=== PATIENT | female | born 1955 | race Caucasian/White ===

== ENCOUNTER 2023-12-12 06:27 | Inpatient (IN) | payer OTHER, SELFPAY ==
--- NOTE | 2023-11-07 10:49 | CM ---
Patient is scheduled for an elective R TKR on 12/12/23. Spoke with patient prior to surgery via telephone. Patient had a L TKR at in 2020. Reintroduced role of Orthopedic Navigator. Patient reports that she lives with her in a one story
home. There is one step to enter. She currently functions independently. She has a rolling walker, toilet rails, shower seat and cane. She has never had VN services. PCP is Yasmany Charles.
Discussed orthopedic program and post surgical plans. Reviewed anticipated length of stay and that goal is for her to return home at discharge. Also reviewed outpatient PT. Patient is in agreement with tentative plan and will go directly to
outpatient PT at [facility]. She will have support from her when she goes home.
Patient will complete online education.
Plan: Orthopedic Navigator will remain available to assist with the care of patient and will reassess discharge needs after surgery.
[2023-11-22 09:03] VITALS: BMI 40.7
[2023-11-22 10:26] LABS: Hematocrit 41.2 % (37.0-47.0); Hemoglobin 13.5 g/dL (12.0-16.0); Mean Corp Hgb Conc. 32.8 g/dL (33.0-37.0); Mean Corpuscular Hgb 31.7 pg (27.0-31.0); Mean Corpuscular Volume 96.7 fL (81.0-99.0); Mean Platelet Volume 9.3 fL (7.4-10.4); Platelet Count 302 10^3/uL (130-400); Red Blood Cell Count 4.26 10^6/uL (4.20-5.40); Red Cell Dist. Width 13.5 % (11.5-14.5); White Blood Cell Count 7.8 10^3/uL (4.8-10.8)
[2023-11-22 10:58] LABS: ALT (SGPT) 21 U/L (0-35); AST (SGOT) 26 U/L (14-36); Albumin 4.5 g/dl (3.5-5.0); Alkaline Phosphatase 87 U/L (38-126); Blood Urea Nitrogen 18 mg/dl (7-17); Calcium 9.2 mg/dl (8.4-10.2); Carbon Dioxide 28 mmol/L (22-30); Chloride 100 mmol/L (98-107); Estimated Creatinine Clearance 118 ml/min; Glucose 103 mg/dl (70-99); Potassium 4.1 mmol/L (3.5-5.1); Sodium 138 mmol/L (135-145); Total Bilirubin 0.7 mg/dl (0.2-1.3); eGFR > 60.00
[2023-11-22 13:08] LABS: Glycohemoglobin (HgbA1c) 5.1 % (4.0-5.6)
[2023-11-22 16:20] VITALS: BMI 40.7
[2023-12-12] VITALS (20 sets, daily range): BP systolic 101–157; BP diastolic 58–91; PULSE 74; O2SAT 95; BMI 40.7
[2023-12-12] MEDS: CELEBREX 200 MG PO (07:26)
[2023-12-12] MEDS: TYLENOL 650 MG PO ×3 (07:26→20:27)
[2023-12-12] MEDS: NORMOSOL-R 1000 IV ×3 (07:27→13:06)
[2023-12-12] MEDS: DILAUDID 2 MG PO ×2 (14:19→16:09)
--- NOTE | 2023-12-12 14:39 | PTCARENOTE ---
1430: Patient arrived to 2S. Full head to toe assessment completed. Neurovascular assessment completed on B/L LE. Decreased movement and sensation note on LE. Aquacell on R knee. Scant amount of blood noted on aquacell. Aquacell intact. 2L NC with
SpO2 greater than 92%. IV fluids running per order. Call vang within reach and bed in lowest position.
[2023-12-12] MEDS: PROTONIX 40 MG PO (16:08)
[2023-12-12] MEDS: NEURONTIN 300 MG PO ×2 (16:09→21:54)
[2023-12-12] MEDS: ANCEF 5 IV (17:07)
[2023-12-12] MEDS: CRESTOR 5 MG PO (17:07)
[2023-12-12] MEDS: ASPIRIN 325 MG PO (17:07)
[2023-12-12] MEDS: FLOVENT 220MCG 1 PUFF INH (19:21)
[2023-12-12] MEDS: COLACE 100 MG PO (20:27)
[2023-12-12] MEDS: TORADOL 15 MG IV (20:27)
[2023-12-12] MEDS: SENOKOT 17.1999999999999993 MG PO (20:27)
[2023-12-12] MEDS: AZULFIDINE 1500 MG PO (20:27)
--- NOTE | 2023-12-12 21:30 | PTCARENOTE ---
patient OOB to chair with assist x1 with rolling walker, tolerated well. Pulse ox on room air 93%
[2023-12-12] MEDS: VALIUM 4 MG PO (21:54)
[2023-12-12] MEDS: BACTROBAN 2% OINTMENT 1 APPLIC NASAL (21:54)
[2023-12-13] MEDS: TYLENOL 650 MG PO ×4 (00:40→12:09)
[2023-12-13] MEDS: DILAUDID 2 MG PO (00:45)
[2023-12-13] MEDS: ANCEF 5 IV (02:09)
[2023-12-13] MEDS: DILAUDID 0.5 MG IV (03:17)
[2023-12-13 03:40] VITALS: BP 124/69
[2023-12-13] MEDS: FLOVENT 220MCG 1 PUFF INH (07:32)
[2023-12-13] MEDS: STRIVERDI RESPIMAT 2 PUFF INH (07:32)
[2023-12-13 07:35] VITALS: BP 128/67
[2023-12-13] MEDS: DILAUDID 4 MG PO (08:04)
[2023-12-13] MEDS: SYNTHROID 25 MCG PO (08:05)
[2023-12-13] MEDS: SENOKOT PO ×2 (08:05→08:19)
[2023-12-13] MEDS: BACTROBAN 2% OINTMENT 1 APPLIC NASAL (08:05)
[2023-12-13] MEDS: COLACE PO ×2 (08:06→08:22)
[2023-12-13] MEDS: ASPIRIN 325 MG PO (08:07)
[2023-12-13] MEDS: TORADOL 15 MG IV (08:07)
[2023-12-13] MEDS: MOBIC 15 MG PO (08:07)
[2023-12-13] MEDS: NEURONTIN 300 MG PO (08:07)
[2023-12-13] MEDS: PROTONIX 40 MG PO (08:07)
[2023-12-13] MEDS: AZULFIDINE 1500 MG PO (08:07)
[2023-12-13] MEDS: FLUSH (NSS) 2 FLUSH IV (08:13)
--- NOTE | 2023-12-13 08:43 | CM ---
Addendum entered by Mary Proctor 12/13/23 11:35:
Patient did well in therapy. She has no concerns about going home and has updated her .
Original Note:
Reviewed chart and held rounds with PT, OT and nursing. Patient admitted as planned for elective R TKR. Met with patient at bedside. Confirmed information previously obtained for assessment. Also discussed discharge plans. The plan is for patient to
return home at discharge. She will have support from her when she goes home. Patient will go directly to outpatient PT and will go to [facility]. She has an appointment scheduled for Tuesday, 12/13.
Patient has a rolling walker, toilet rails, shower seat and cane.
She will use [facility] for discharge prescriptions.
[2023-12-13 09:28] VITALS: BP 114/66; BP 122/59; PULSE 80; O2SAT 93
--- NOTE | 2023-12-13 09:32 | W.PN.ORTHO ---
Today's Communication / Plan
-
d/c
Assessment
.
Distal Motor Intact: Yes
Dressing:
Clean, dry and intact.
Plan
.
Surgery / Date: Myrtle Harper 12/12/23
DVT Prophylaxis: Aspirin
Activity:
Out of bed.
PT/OT
Discharge Plan: Home w/ Outpatient PT
Subjective
.
.:
Patient resting comfortably.
Vital Signs and Labs
.
Vital Signs and Labs:
Lab Results
11/22/23 08:53
11/22/23 08:53
Temp Pulse Resp BP Pulse Ox
97.6 F 72 16 128/67 94
12/13/23 07:35 12/13/23 07:38 12/13/23 07:38 12/13/23 07:35 12/13/23 07:38
Non-invasive Hgb result: 12.1
Physical Exam
-
HEENT: No pallor, cyanosis, or jaundice. Throat clear.
NECK: Supple. No JVD.
RESPIRATORY: Lungs clear to auscultation.
CVS: S1, S2 normal. RRR.� No murmur, rub or gallop.
ABDOMEN: Soft, non-tender. No distension. BS+/normal.
EXTREMITIES: strength equal, no calf pain with palpation
TICKET MARKER: AOx3. No focal deficits. french lecturer grossly intact
--- NOTE | 2023-12-13 09:51 | W.DS.TRANS ---
DC Summary - Air And Water Tester
-
Discharge Instructions:
Sleep Apnea Risk Intermediate
Discharge Diagnosis/Procedures R TKA Dr. Harper 12/12/23
Diet As tolerated
Activity With Walker
Driving Restrictions No driving
Bathing Restrictions OK to Shower
Other Services PT
Instructions:
Stand-Alone Forms: Total Hip/Knee Replacement D/C
Changes to Home Medications: Yes
Discharge Medications:
DC Medications w/original date entered in [email or web address]
rosuvastatin 5 mg tablet 5 mg PO QPM High Cholesterol 11/21/15
fluticasone propionate 220 mcg/actuation HFA aerosol inhaler 1 puff inhalation BID Lung/Breathing Issues 11/21/23
folic acid 1 mg tablet 1 mg PO SUMOTUWETHSA Supplement 11/21/23
hydroxychloroquine 200 mg tablet (Plaquenil) 200 mg PO BID 11/21/23
levothyroxine 25 mcg tablet 25 mcg PO DAILY Thyroid 11/21/23
methotrexate sodium 2.5 mg tablet 15 mg PO TH 11/21/23
salmeterol 50 mcg/dose blister powder for inhalation (Serevent Diskus) 1 inh inhalation BID Lung/Breathing Issues 11/21/23
sulfasalazine 500 mg tablet 1,500 mg PO BID 11/21/23
mupirocin 2 % topical ointment 1 applic topical BID infection prevention #1 tube 11/22/23
Saccharomyces boulardii 250 mg capsule (Florastor) 250 mg PO BID #1 cap 12/13/23
acetaminophen 325 mg capsule (Tylenol) 650 mg (2 x 325 mg) PO QID #2 caps 12/13/23
aspirin 325 mg tablet 325 mg PO DAILY blood clot prevention #1 tab 12/13/23
cefadroxil 500 mg capsule 500 mg PO BID infection prevention #14 caps 12/13/23
diazepam 2 mg tablet (Valium) 2 mg PO HS muscle pain/sleep #10 tabs 12/13/23
docusate sodium 100 mg capsule (Colace) 100 mg PO BID stool softner #1 cap 12/13/23
famotidine 20 mg tablet 20 mg PO HS GI prophylaxis #30 tabs 12/13/23
gabapentin 100 mg capsule 200 mg (2 x 100 mg) PO TID Neurological Condition #180 caps 12/13/23
hydromorphone 2 mg tablet 2 - 4 mg (1 - 2 x 2 mg) PO Q6H PRN 1 tab moderate pain, 2 severe #30 tabs 12/13/23
magnesium hydroxide 400 mg/5 mL oral suspension (Milk of Magnesia) 30 ml PO HS PRN Constipation #1 mL 12/13/23
meloxicam 15 mg tablet 15 mg PO DAILY anti-inflammatory #14 tabs 12/13/23
ondansetron 4 mg disintegrating tablet 4 mg PO Q6H PRN n/v #20 tabs 12/13/23
sennosides 8.6 mg tablet (Senokot) 17.2 mg (2 x 8.6 mg) PO BID laxative #2 tabs 12/13/23
Home Medication Changes
cefadroxil 500 mg capsule 500 mg PO BID infection prevention #14 caps 12/13/23
diazepam 2 mg tablet (Valium) 2 mg PO HS muscle pain/sleep #10 tabs 12/13/23
famotidine 20 mg tablet 20 mg PO HS GI prophylaxis #30 tabs 12/13/23
gabapentin 100 mg capsule 200 mg (2 x 100 mg) PO TID Neurological Condition #180 caps 12/13/23
hydromorphone 2 mg tablet 2 - 4 mg (1 - 2 x 2 mg) PO Q6H PRN 1 tab moderate pain, 2 severe #30 tabs 12/13/23
meloxicam 15 mg tablet 15 mg PO DAILY anti-inflammatory #14 tabs 12/13/23
ondansetron 4 mg disintegrating tablet 4 mg PO Q6H PRN n/v #20 tabs 12/13/23
Pending Results: No
[2023-12-13] MEDS: PLAQUENIL 200 MG PO (10:13)
[2023-12-13 12:15] VITALS: BP 140/70; PULSE 78
[2023-12-13 13:11] VITALS: BP 140/70; PULSE 78
== END 2023-12-13 13:22 | disposition home or self-care (01) | DRG 470 ==
LOC: 2 SOUTH 06:27
PROVIDERS: ADMITTING PHYSICIAN Specialist; FAMILY PHYSICIAN Internal Medicine Critical Care Medicine
PROC: 0SRC0J9 Replacement of Right Knee Joint with Synthetic Substitute, Cemented, Open Approach (ICD-10-PCS; 2023-12-12)
DX: M17.11 Unilateral primary osteoarthritis, right knee (principal); Z68.41 Body mass index [BMI] 40.0-44.9, adult; E66.01 Morbid (severe) obesity due to excess calories; J45.20 Mild intermittent asthma, uncomplicated; J98.4 Other disorders of lung; M06.9 Rheumatoid arthritis, unspecified; R59.0 Localized enlarged lymph nodes; M48.00 Spinal stenosis, site unspecified; M79.7 Fibromyalgia; E03.9 Hypothyroidism, unspecified; K21.9 Gastro-esophageal reflux disease without esophagitis; R73.03 Prediabetes; D64.9 Anemia, unspecified; R16.0 Hepatomegaly, not elsewhere classified; R00.2 Palpitations; D32.9 Benign neoplasm of meninges, unspecified; E78.5 Hyperlipidemia, unspecified; Z96.652 Presence of left artificial knee joint; Z87.19 Personal history of other diseases of the digestive system; Z86.19 Personal history of other infectious and parasitic diseases
CPT/HCPCS: 36415; 73560; 80053; 83036; 85027; 87070; 94640; 97110; 97116; 97162; 97166; 97530; 97535; C1713; C1776

== ENCOUNTER → 2024-03-02 14:59 | Outpatient (REF) | payer OTHER, SELFPAY | LOC: PAVMRI 14:59 | PROVIDERS: ATTENDING PHYSICIAN Pain Medicine Interventional Pain Medicine; FAMILY PHYSICIAN Internal Medicine Critical Care Medicine | DX: M54.16 Radiculopathy, lumbar region (principal) | CPT/HCPCS: 72148 ==

== ENCOUNTER → 2024-04-30 06:35 | Outpatient (REF) | payer OTHER, SELFPAY | LOC: MRI 06:35 | PROVIDERS: ATTENDING PHYSICIAN Pain Medicine Interventional Pain Medicine; FAMILY PHYSICIAN Internal Medicine Critical Care Medicine | DX: M53.3 Sacrococcygeal disorders, not elsewhere classified (principal) | CPT/HCPCS: 72195 ==

== ENCOUNTER 2024-05-09 14:14 | Emergency (ER) | payer OTHER, SELFPAY ==
[2024-05-09 14:16] VITALS: BP 168/110
[2024-05-09 14:41] LABS: % Basophils 0.3 % (0-2); % Eosinophils 1.9 % (0-6); % Immature Granulocytes 0.5 % (0-0.5); % Lymphocytes 11.5 % (20.5-51.1); % Monocytes 7.5 % (1.7-9.3); % Neutrophils 78.3 % (42.2-75.2); Absolute Basophils 0.1 10^3/uL (0-0.2); Absolute Eosinophils 0.3 10^3/uL (0-0.7); Absolute Immature Granulocytes 0.1 10^3/uL (0-0.05); Absolute Lymphocytes 1.9 10^3/uL (1.2-3.4); Absolute Monocytes 1.2 10^3/uL (0.1-0.6); Absolute Neutrophils 12.8 10^3/uL (1.4-6.5); Hematocrit 41.8 % (37.0-47.0); Hemoglobin 14.2 g/dL (12.0-16.0); Mean Corpuscular Hgb 30.9 pg (27.0-31.0); Mean Corpuscular Volume 90.9 fL (81.0-99.0); Mean Platelet Volume 8.7 fL (7.4-10.4); Nucleated Red Blood Cells % 0 %; Platelet Count 313 10^3/uL (130-400); Red Cell Dist. Width 14.1 % (11.5-14.5); White Blood Cell Count 16.3 10^3/uL (4.8-10.8)
[2024-05-09 14:51] LABS: ALT (SGPT) 18 U/L (0-35); AST (SGOT) 27 U/L (14-36); Albumin 4.6 g/dl (3.5-5.0); Alkaline Phosphatase 105 U/L (38-126); Blood Urea Nitrogen 17 mg/dl (7-17); Calcium 9.6 mg/dl (8.4-10.2); Carbon Dioxide 27 mmol/L (22-30); Chloride 100 mmol/L (98-107); Glucose 105 mg/dl (70-99); Lipase 64 U/L (23-300); Potassium 4.1 mmol/L (3.5-5.1); Sodium 141 mmol/L (135-145); Total Bilirubin 0.7 mg/dl (0.2-1.3); Total Protein 7.1 g/dl (6.3-8.2); eGFR > 60.00
[2024-05-09 18:02] VITALS: BP 154/77
[2024-05-09 19:00] VITALS: BP 142/85
--- NOTE | 2024-05-09 19:41 | ED.GENMED ---
History of Present Illness
<DO Toribio Natarajan Last Filed: 05/09/24 21:01>
General
Chief Complaint: Vomiting Blood
Source: patient
Time Seen by Provider: 05/09/24 18:02
History of Present Illness
History of Present Illness:
This is a 69-year-old female presents after she had sudden onset of vomiting. She states that she did see some blood streaks in it. She states that she also developed some upper abdominal pain. She did have a grilled cheese earlier today. About
2 weeks ago she had a similar event. This occurred at night. She does not recall she had blood in it but sudden onset of some vomiting. She did have a cheeseburger that day. No diarrhea. No melena. No hematochezia. No fevers.
Past History
<Ruben Martinez DO - Last Filed: 05/09/24 21:01>
Past History
ED Past Medical History: Asthma, Fibromyalgia, Hypercholesterolemia, Hypothyroidism and Other (Fatty liver, meningioma)
ED Past Surgical History: Appendectomy, Gynecological (Total hysterectomy), Orthopedic (right knee arthroscopy) and Other (laparoscopy)
Patient has exhibited threatening behavior?: No
Social History
Tobacco: Non-smoker
Alcohol: Occasional
Drug: None
Personal:
Living: with family
Employment: Employed
Family History
Family History: CAD
Phy Exam
<Ruben Martinez DO - Last Filed: 05/09/24 21:01>
Physical Exam
Physical Exam:
CONSTITUTIONAL Patient alert and oriented to person, place and time. Well-appearing. Vital signs reviewed.
HEAD atraumatic, normocephalic.
EYES eyelids normal to inspection, Pupils equally round and reactive to light, Extraocular muscles intact, Conjunctiva normal, Sclera normal.
NECK normal range of motion, Trachea midline, no jugular venous distention.
RESPIRATORY CHEST No respiratory distress noted, Chest expansion equal, Bilateral breath sounds clear.
CARDIOVASCULAR regular rate and rhythm, Heart sounds normal.
ABDOMEN moderate right upper quadrant tenderness, Bowel sounds normal. No distention.
BACK normal inspection, no obvious deformities
UPPER EXTREMITY range of motion normal, Motor strength normal, no cyanosis, no edema.
LOWER EXTREMITY range of motion normal, Motor strength normal, no cyanosis, no edema.
NEURO Speech normal, No focal motor deficits, Paterson coma scale 15, Memory normal, Cranial Nerves intact to screening exam.
SKIN skin warm, dry, and normal in color.
PSYCHIATRIC patient oriented to person place and time, Normal affect.
Course
<Ruben Martinez, DO - Last Filed: 05/09/24 21:01>
Orders/Labs/Results
Orders:
Orders
05/09/24 14:24
Type+Screen Urgent
Complete Blood Count/With Diff Urgent
Comprehensive Metabolic Panel Urgent
Lipase Urgent
05/09/24 18:51
US Abdomen Complete/Upper Urgent
Comment:
Reason For Exam: upper/RUQ abd pain
05/09/24 20:53
Pantoprazole [Protonix IV] 40 mg IV NOW STA
05/09/24 20:59
CT Abd/pelvis W Iv Cont Urgent
Comment:
Reason For Exam: upper abd pain
05/09/24 21:34
Diphenhydramine [Benadryl] 50 mg IV NOW STA
Hydrocortisone Sod Succinate [Solu-Cortef] 200 mg IV NOW STA
05/09/24 23:29
Amoxicillin 875 mg/Clav 125 mg [Augmentin 875 mg/125 mg] 1 tablet PO NOW STA
Abnormal Lab Results
05/09/24
14:24
WBC 16.3 H 10^3/uL
(4.8-10.8)
Abs Immat Gran (auto) 0.1 H 10^3/uL
(0-0.05)
Absolute Neuts (auto) 12.8 H 10^3/uL
(1.4-6.5)
Absolute Monos (auto) 1.2 H 10^3/uL
(0.1-0.6)
Neutrophils % 78.3 H %
(42.2-75.2)
Lymphocytes % 11.5 L %
(20.5-51.1)
Glucose 105 H mg/dl
(70-99)
05/09/24 14:24
05/09/24 14:24
Vital Signs
Initial and Last Documented VS:
Initial Vital Signs
Temp Pulse Resp BP Pulse Ox
98.3 F 96 18 168/110 94
05/09/24 14:16 05/09/24 14:16 05/09/24 14:16 05/09/24 14:16 05/09/24 14:16
Last Documented Vital Signs
Temp Pulse Resp BP Pulse Ox
98.3 F 69 14 134/79 93
05/09/24 14:16 05/09/24 22:30 05/09/24 22:30 05/09/24 22:00 05/09/24 21:30
<Robert Booth, DO - Last Filed: 05/09/24 23:34>
Orders/Labs/Results
Orders:
Orders
05/09/24 14:24
Type+Screen Urgent
Complete Blood Count/With Diff Urgent
Comprehensive Metabolic Panel Urgent
Lipase Urgent
05/09/24 18:51
US Abdomen Complete/Upper Urgent
Comment:
Reason For Exam: upper/RUQ abd pain
05/09/24 20:53
Pantoprazole [Protonix IV] 40 mg IV NOW STA
05/09/24 20:59
CT Abd/pelvis W Iv Cont Urgent
Comment:
Reason For Exam: upper abd pain
05/09/24 21:34
Diphenhydramine [Benadryl] 50 mg IV NOW STA
Hydrocortisone Sod Succinate [Solu-Cortef] 200 mg IV NOW STA
05/09/24 23:29
Amoxicillin 875 mg/Clav 125 mg [Augmentin 875 mg/125 mg] 1 tablet PO NOW STA
Abnormal Lab Results
05/09/24
14:24
WBC 16.3 H 10^3/uL
(4.8-10.8)
Abs Immat Gran (auto) 0.1 H 10^3/uL
(0-0.05)
Absolute Neuts (auto) 12.8 H 10^3/uL
(1.4-6.5)
Absolute Monos (auto) 1.2 H 10^3/uL
(0.1-0.6)
Neutrophils % 78.3 H %
(42.2-75.2)
Lymphocytes % 11.5 L %
(20.5-51.1)
Glucose 105 H mg/dl
(70-99)
05/09/24 14:24
05/09/24 14:24
Vital Signs
Initial and Last Documented VS:
Initial Vital Signs
Temp Pulse Resp BP Pulse Ox
98.3 F 96 18 168/110 94
05/09/24 14:16 05/09/24 14:16 05/09/24 14:16 05/09/24 14:16 05/09/24 14:16
Last Documented Vital Signs
Temp Pulse Resp BP Pulse Ox
98.3 F 69 14 134/79 93
05/09/24 14:16 05/09/24 22:30 05/09/24 22:30 05/09/24 22:00 05/09/24 21:30
<Ruben Martinez, DO - Last Filed: 05/09/24 21:01>
MDM/Problems Addressed
MDM/Problems Addressed:
Abdominal pain, vomiting, esophagitis/gastritis
<Ruben Martinez, DO - Last Filed: 05/09/24 21:01>
*Pulse Oximetry
Patient hypoxic: no
*Critical Care Note
Total Time (30-74mins, 75-104mins- exclusive of procedures): Not Applicable
Data Reviewed
Source: patient
Further Testing Considered But Not Given:
Consider CT but check ultrasound gallbladder
<Ruben Martinez, DO - Last Filed: 05/09/24 21:01>
Patient Management
Escalation/DeEscalation of care consider admission/obs:
Abdomen turning sander tender. Check CT.
<Robert Booth, DO - Last Filed: 05/09/24 23:34>
Update Note
Update Note:
11:30 PM care of patient was transitioned earlier in the evening pending CT scan. Patient presenting with right upper abdominal pain. Patient found to have leukocytosis. CT shows questional viral gastroenteritis and does show diverticulosis in
the same area. Given the concern for early and mild diverticulitis, I had a long conversation with patient. She is uncomfortable. Will start Augmentin and patient feels comfortable going home
ED Attending Note
<Ruben Martinez, DO - Last Filed: 05/09/24 21:01>
-
Portions of this chart may have been created with voice recognition software.� Occasional wrong word or��sound alike� substitutions may have occurred due to the inherent limitations of voice recognition software.
Discharge Plan
Departure
Patient Disposition: Home (Routine Discharge)
Date of Disposition: 05/09/24
Time of Disposition: 23:30
Patient with high blood pressure during this ER visit?: No
Discharge Problem:
Diverticulitis
Instructions: Diverticulitis (DC)
Prescriptions:
New
amoxicillin-pot clavulanate 875-125 mg tablet
1 tab PO BID Qty: 14 0RF
No Action
rosuvastatin 5 MG tablet
5 mg PO QPM
sulfasalazine 500 mg Tablet
1,500 mg PO BID
levothyroxine 25 mcg Tablet
25 mcg PO DAILY
methotrexate sodium 2.5 mg Tablet
15 mg PO TH
Serevent Diskus 50 mcg/dose Blister With Device
1 inh INHALATION BID
folic acid 1 mg Tablet
1 mg PO SUMOTUWETHSA
fluticasone propionate 220 mcg/actuation Hfa Aerosol Inhaler
1 puff INHALATION BID
hydroxychloroquine [Plaquenil] 200 mg Tablet
200 mg PO BID
mupirocin 2 % ointment
1 applic topical BID Qty: 1 0RF
Patient Comments:
applied this am 12/11/24
sennosides [Senokot] 8.6 mg tablet
17.2 mg PO BID Qty: 2 0RF
aspirin 325 mg tablet
325 mg PO DAILY Qty: 1 0RF
Rx Instructions:
Take with food
meloxicam 15 mg tablet
15 mg PO DAILY Qty: 14 0RF
Rx Instructions:
take with food
post-op
cefadroxil 500 mg capsule
500 mg PO BID Qty: 14 0RF
Rx Instructions:
*Take w/ food
*Take w/ probiotic
*POST-OP USE
famotidine 20 mg tablet
20 mg PO HS Qty: 30 0RF
Rx Instructions:
post-op
magnesium hydroxide [Milk of Magnesia] 400 mg/5 mL suspension
30 ml PO HS PRN (Reason: Constipation) Qty: 1 0RF
diazepam [Valium] 2 mg tablet
2 mg PO HS Qty: 10 0RF
docusate sodium [Colace] 100 mg capsule
100 mg PO BID Qty: 1 0RF
ondansetron 4 mg tablet,disintegrating
4 mg PO Q6H PRN (Reason: n/v) Qty: 20 0RF
Rx Instructions:
take 1/2h b/f pain med if recurrent nausea
allow to dissolve in mouth w/o water
Saccharomyces boulardii [Florastor] 250 mg capsule
250 mg PO BID Qty: 1 0RF
acetaminophen [Tylenol] 325 mg capsule
650 mg PO QID Qty: 2 0RF
gabapentin 100 mg Capsule
200 mg PO TID Qty: 180 0RF
Rx Instructions:
tid x 7 days, then bid as previous
hydromorphone 2 mg tablet
2 - 4 mg PO Q6H PRN (Reason: 1 tab moderate pain, 2 severe) Qty: 30 0RF
Rx Instructions:
Dx orthopedic surgery
Ongoing therapy
Referrals:
Yasmany Charles MD [Family Provider] -
Activity Restrictions/Additional Instructions:
Please return for any worsening symptoms.
You may return at any time if you have further concerns.
Please follow up with your doctor at the first available appointment, preferably this week.
Thank you for choosing [facility].
Interventions
Interventions:
*Risk Screen - Suicide Last Done: 05/09/24 18:16
*General Assessment Last Done: 05/09/24 14:16
*Neglect/Abuse Screening Last Done: 05/09/24 18:16
*ED COVID-19 Vaccine History Last Done: 05/09/24 14:16
QG-[facility] Assessment Last Done: 05/09/24 18:15
ED- Cardiac Assessment Last Done: 05/09/24 18:15
ED- Pulmonary Assessment Last Done: 05/09/24 18:15
Discharge Date and Time
Print Language: PERSIAN
[2024-05-09 21:20] VITALS: BP 133/119
[2024-05-09] MEDS: PROTONIX IV 40 MG IV (21:22)
[2024-05-09] MEDS: BENADRYL 50 MG IV (21:38)
[2024-05-09] MEDS: SOLU-CORTEF 200 MG IV (21:38)
[2024-05-09 22:00] VITALS: BP 134/79
[2024-05-09 23:37] VITALS: BP 134/80
[2024-05-09] MEDS: AUGMENTIN 875 MG/125 MG 1 TABLET PO (23:43)
== END 2024-05-10 00:01 | disposition home or self-care (01) ==
LOC: EMR 14:14
PROVIDERS: EMERGENCY PHYSICIAN Emergency Medicine; FAMILY PHYSICIAN Internal Medicine Critical Care Medicine
DX: K57.32 Diverticulitis of large intestine without perforation or abscess without bleeding (principal)
CPT/HCPCS: 99285; 96374; 96375 ×2; 74177; 76700; 80053; 83690; 85025; 86850; 86900; 86901; Q9967

== ENCOUNTER → 2024-06-28 07:15 | Outpatient (REF) | payer OTHER, SELFPAY | LOC: WDC 07:15 | PROVIDERS: ATTENDING PHYSICIAN Obstetrics & Gynecology | DX: Z12.31 Encounter for screening mammogram for malignant neoplasm of breast (principal); Z78.0 Asymptomatic menopausal state | CPT/HCPCS: 77063; 77067 ==

== ENCOUNTER → 2024-07-24 13:55 | Outpatient (REF) | payer OTHER, SELFPAY | LOC: RAD 13:55 | PROVIDERS: ATTENDING PHYSICIAN Internal Medicine Rheumatology; FAMILY PHYSICIAN Internal Medicine Critical Care Medicine | DX: M05.79 Rheumatoid arthritis with rheumatoid factor of multiple sites without organ or systems involvement (principal); M25.539 Pain in unspecified wrist | CPT/HCPCS: 73110 ==

== ENCOUNTER 2024-11-21 07:53 | Emergency (ER) | payer OTHER, SELFPAY ==
[2024-11-21 07:57] VITALS: BP 207/116
--- NOTE | 2024-11-21 08:18 | ED.GENMED ---
History of Present Illness
<NATHALIE Green - Last Filed: 11/21/24 12:12>
General
Chief Complaint: Breathing Problem
Source: patient
Time Seen by Provider: 11/21/24 08:09
Nursing documentation reviewed up to this point in time: agreed with
History of Present Illness
History of Present Illness:
Patient is a 69 yr old female with asthma, fibromyalgia, rheumatoid arthritis on Plaquenil methotrexate and other medications presents to the ER for evaluation. She started with nasal drip yesterday and felt like she was getting sick. She started
chills overnight and felt pressure in her chest and could not breathe. She does feel feverish.
She is on Breo for her asthma and her asthma is very well-controlled she rarely has to use her rescue inhaler. She does not smoke.
Past History
<NATHALIE Green - Last Filed: 11/21/24 12:12>
Past History
ED Past Medical History: Asthma, Fibromyalgia, Hypercholesterolemia, Hypothyroidism and Other (Fatty liver, meningioma)
ED Past Surgical History: Appendectomy, Gynecological (Total hysterectomy), Orthopedic (right knee arthroscopy) and Other (laparoscopy)
Patient has exhibited threatening behavior?: No
Social History
Tobacco: Non-smoker
Alcohol: Occasional
Drug: None
Personal:
Living: with family
Employment: Employed
Family History
Family History: CAD
Review of Systems
<NATHALIE Green - Last Filed: 11/21/24 12:12>
Review of Systems
Allergies reviewed?: Yes
All Other Systems: ROS reviewed and negative except as documented in HPI and ROS
Constitutional: Reports fever and fatigue
EENT: Reports other (post nasal drip )
Respiratory: Reports trouble breathing
Cardiac: Reports chest pain
ABD/GI: Reports no symptoms
: Reports no symptoms
Musculoskeletal: Reports no symptoms
Skin: Reports no symptoms
Neurological: Reports no symptoms
Psychiatric: Reports no symptoms
Phy Exam
<NATHALIE Green - Last Filed: 11/21/24 12:12>
General Physical Exam
General Presentation: no apparent distress
General age: appears stated age
General Skin: warm and dry
General Habitus: normal
General Mental: alert
General Hydration: appears well hydrated
Cardiovascular Exam
Cardiovascular Exam: tachycardia
Pulmonary Exam
Pulmonary Exam: no respiratory distress and other (slight exp wheezing )
Neurological Exam
Neurological Exam: alert and oriented x3
Musculoskeletal Exam
Musculoskeletal Exam: full ROM
Skin Exam
Skin Exam: normal color and warm/dry
Psychiatric Exam
Psychiatric Exam: normal mood/affect
Scores
<NATHALIE Green - Last Filed: 11/21/24 12:12>
Heart Failure Risk
Heart Failure Risk Score: Not Applicable
Course
<NATHALIE Green - Last Filed: 11/21/24 12:12>
Orders/Labs/Results
Orders:
Orders
11/21/24 07:57
Electrocardiogram (*1) Urgent
Reason for Study: Shortness of Breath
EKG- Treatment ONCE
11/21/24 08:16
Albuterol Sulfate [Ventolin Nebules] 7.5 mg INH R NOW STA
Dexamethasone Sod Phosphate [Decadron] 10 mg IV NOW STA
Ipratropium Nebs [Atrovent Nebules] 1 mg INH R NOW STA
Portable Chest Xray [CR Chest Portable - 1 View] Urgent
Comment:
Reason For Exam: sob
Reason Study Needs to be Portable: Patient Unstable
11/21/24 08:17
IV Insert/Care/Rem.- Treatment PRN
11/21/24 08:25
COVID-19 Antigen Urgent
Source: Nasal Swab
Influenza A+B Rapid Molecular Urgent
BECCA Source: Nasal Swab
Specimen Description:
11/21/24 08:32
Complete Blood Count/With Diff Urgent
Comprehensive Metabolic Panel Urgent
Troponin I Urgent
11/21/24 08:38
Urinalysis Reflex To Culture Urgent
Date Specimen was Collected: 11/21/24
Time Specimen was Collected: 08:34
Urine Microscopic Reflex Cult Urgent
11/21/24 08:57
Acetaminophen [Tylenol] 1,000 mg PO NOW STA
11/21/24 09:40
0.9% Sodium Chloride 1000 ml [Nss] 1,000 ml IV BOLUS
11/21/24 11:04
Albuterol Nebs [Ventolin Nebules] 2.5 mg INH R NOW STA
Abnormal Lab Results
11/21/24 11/21/24 11/21/24
08:32 08:38
RBC 4.14 L 10^6/uL
(4.20-5.40)
MCH 32.1 H pg
(27.0-31.0)
Abs Immat Gran (auto) 0.1 H 10^3/uL
(0-0.05)
Absolute Lymphs (auto) 0.5 L 10^3/uL
(1.2-3.4)
Absolute Monos (auto) 0.9 H 10^3/uL
(0.1-0.6)
Immature Gran % 1.0 H %
(0-0.5)
Neutrophils % 77.3 H %
(42.2-75.2)
Lymphocytes % 6.9 L %
(20.5-51.1)
Monocytes % 12.1 H %
(1.7-9.3)
Sodium 134 L mmol/L
(135-145)
Glucose 112 H mg/dl
(70-99)
Ur Occult Blood Reflex 1+ A
(Negative)
SARS-CoV-2 Antigen Positive A
(Negative)
11/21/24 08:32
11/21/24 08:32
Vital Signs
Initial and Last Documented VS:
Initial Vital Signs
Temp Pulse Resp Pulse Ox
100.1 F 117 18 93
11/21/24 07:54 11/21/24 07:54 11/21/24 07:54 11/21/24 07:54
Last Documented Vital Signs
Temp Pulse Resp BP Pulse Ox
100.3 F 95 20 153/74 92
11/21/24 09:30 11/21/24 11:15 11/21/24 11:15 11/21/24 11:00 11/21/24 11:00
Traffic Division Commanding Officer consulted with Physician
Traffic Division Commanding Officer consulted with physician?: Yes
Name of Physician Consulted: Rashaun
<Kristi Rodney MD - Last Filed: 11/21/24 09:19>
Orders/Labs/Results
Orders:
Orders
11/21/24 07:57
Electrocardiogram (*1) Urgent
Reason for Study: Shortness of Breath
EKG- Treatment ONCE
11/21/24 08:16
Albuterol Sulfate [Ventolin Nebules] 7.5 mg INH R NOW STA
Dexamethasone Sod Phosphate [Decadron] 10 mg IV NOW STA
Ipratropium Nebs [Atrovent Nebules] 1 mg INH R NOW STA
Portable Chest Xray [CR Chest Portable - 1 View] Urgent
Comment:
Reason For Exam: sob
Reason Study Needs to be Portable: Patient Unstable
11/21/24 08:17
IV Insert/Care/Rem.- Treatment PRN
11/21/24 08:25
COVID-19 Antigen Urgent
Source: Nasal Swab
Influenza A+B Rapid Molecular Urgent
BECCA Source: Nasal Swab
Specimen Description:
11/21/24 08:32
Complete Blood Count/With Diff Urgent
Comprehensive Metabolic Panel Urgent
Troponin I Urgent
11/21/24 08:38
Urinalysis Reflex To Culture Urgent
Date Specimen was Collected: 11/21/24
Time Specimen was Collected: 08:34
Urine Microscopic Reflex Cult Urgent
11/21/24 08:57
Acetaminophen [Tylenol] 1,000 mg PO NOW STA
11/21/24 09:40
0.9% Sodium Chloride 1000 ml [Nss] 1,000 ml IV BOLUS
11/21/24 11:04
Albuterol Nebs [Ventolin Nebules] 2.5 mg INH R NOW STA
Abnormal Lab Results
11/21/24 11/21/24 11/21/24
08: 08:32 08:38
RBC 4.14 L 10^6/uL
(4.20-5.40)
MCH 32.1 H pg
(27.0-31.0)
Abs Immat Gran (auto) 0.1 H 10^3/uL
(0-0.05)
Absolute Lymphs (auto) 0.5 L 10^3/uL
(1.2-3.4)
Absolute Monos (auto) 0.9 H 10^3/uL
(0.1-0.6)
Immature Gran % 1.0 H %
(0-0.5)
Neutrophils % 77.3 H %
(42.2-75.2)
Lymphocytes % 6.9 L %
(20.5-51.1)
Monocytes % 12.1 H %
(1.7-9.3)
Sodium 134 L mmol/L
(135-145)
Glucose 112 H mg/dl
(70-99)
Ur Occult Blood Reflex 1+ A
(Negative)
SARS-CoV-2 Antigen Positive A
(Negative)
11/21/24 08:32
11/21/24 08:32
Vital Signs
Initial and Last Documented VS:
Initial Vital Signs
Temp Pulse Resp Pulse Ox
100.1 F 117 18 93
11/21/24 07:54 11/21/24 07:54 11/21/24 07:54 11/21/24 07:54
Last Documented Vital Signs
Temp Pulse Resp BP Pulse Ox
100.3 F 95 20 153/74 92
11/21/24 09:30 11/21/24 11:15 11/21/24 11:15 11/21/24 11:00 11/21/24 11:00
<NATHALIE Green - Last Filed: 11/21/24 12:12>
MDM/Problems Addressed
Differential Diagnosis Includes:
Not limited viral syndrome, COVID, flu, pneumonia, asthma exacerbation
MDM/Problems Addressed:
Patient found to be COVID-positive here. Patient did present wheezing tachycardic however febrile. Patient was given an hour-long neb here and Decadron feeling better. She was given Tylenol for fever along with fluids. Her labs reviewed her
white count is normal electrolytes are negative x-ray with interstitial markings likely COVID related. Patient is requesting Paxlovid and with history of being immunocompromised on Plaquenil methotrexate will send to pharmacy. I did check with
pharmacy for med interactions Paxlovid is okay with her medications. Discussed with patient supportive care follow-up with outpatient family doctor return if any worsening of symptoms
<NATHALIE Green - Last Filed: 11/21/24 12:12>
*Radiology
Radiology exam reviewed: radiology read reviewed
*Pulse Oximetry
Patient hypoxic: no
*EKG
Heart Rate: 111
Rate: tachycardiac
Rhythm: sinus
*Critical Care Note
Total Time (30-74mins, 75-104mins- exclusive of procedures): Not Applicable
ED Attending Note
<NATHALIE Green - Last Filed: 11/21/24 12:12>
-
Portions of this chart may have been created with voice recognition software.� Occasional wrong word or��sound alike� substitutions may have occurred due to the inherent limitations of voice recognition software.
<Kristi Rodney MD - Last Filed: 11/21/24 09:19>
ED Attending Note
Patient seen and examined by attending physician: Yes
I performed the substantive portion of visit, reviewed & personally made and approve the management plan that is documented in note by myself or JASKARAN.: Yes
ED Attending Note:
Patient appears tachypneic but nontoxic. She is speaking in full sentences. She reports that the nebulizer has helped her. Patient has wheezing on lung exam. She is tachycardic, however, she does have COVID and has a fever so the tachycardia is
not surprising to me. She has no sharp pain in her chest to suggest PE nor does she have any calf pain or tenderness.
Discharge Plan
Departure
Patient Disposition: Home (Routine Discharge)
Date of Disposition: 11/21/24
Time of Disposition: 12:06
Patient with high blood pressure during this ER visit?: Yes
Covid-19: Confirmed COVID-19
Discharge Problem:
COVID-19, Fever
Instructions: COVID-19 - ED discharge instructions, BLOOD PRESSURE
Prescriptions:
New
Paxlovid 300 mg (150 mg x 2)-100 mg tablets,dose pack
See Rx Instructions .ROUTE .COMPLEX Qty: 30 0RF
Rx Instructions:
take TWO 150 mg tablets of nirmatrelvir with ONE 100 mg tablet of ritonavir twice daily for 5 days
No Action
rosuvastatin 5 MG tablet
5 mg PO QPM
sulfasalazine 500 mg Tablet
2,000 mg PO BID
folic acid 1 mg Tablet
1 mg PO SUMOTUWETHSA
hydroxychloroquine [Plaquenil] 200 mg Tablet
200 mg PO BID
levothyroxine [Synthroid] 75 mcg Tablet
75 mcg PO DAILY
methotrexate sodium 2.5 mg Tablet
9.6 mg PO FR@0800,1700
fluticasone furoate-vilanterol [Breo Ellipta] 200-25 mcg/dose Blister With Device
1 inh INHALATION R DAILY
gabapentin 100 mg capsule
200 mg PO BID
acetaminophen [Tylenol] 325 mg Tablet
650 mg PO Q4HPRN PRN (Reason: mild pain)
Referrals:
Yasmany Charles MD [Family Provider] -
Activity Restrictions/Additional Instructions:
As discussed get plenty of rest and stay well-hydrated. You may take Tylenol for symptoms.
A prescription for Paxlovid was sent to your pharmacy take as directed.
Continue to use your inhalers as needed. Follow-up with a family doctor in the next of days.
return if any worsening of symptoms
Interventions
Interventions:
*Risk Screen - Suicide Last Done: 11/21/24 07:54
*General Assessment Last Done: 11/21/24 07:54
*Neglect/Abuse Screening Last Done: 11/21/24 07:54
*ED COVID-19 Vaccine History Last Done: 11/21/24 08:41
Discharge Date and Time
Print Language: MONGOLIAN
[2024-11-21] MEDS: DECADRON 10 MG IV (08:21)
[2024-11-21] MEDS: VENTOLIN NEBULES 7.5 MG INH (08:21)
[2024-11-21] MEDS: ATROVENT NEBULES 1 MG INH (08:21)
[2024-11-21 08:38] VITALS: BMI 40.6
[2024-11-21 08:40] VITALS: BP 166/101
[2024-11-21 08:47] LABS: % Basophils 0.5 % (0-2); % Eosinophils 2.2 % (0-6); % Lymphocytes 6.9 % (20.5-51.1); % Monocytes 12.1 % (1.7-9.3); % Neutrophils 77.3 % (42.2-75.2); Absolute Eosinophils 0.2 10^3/uL (0-0.7); Absolute Immature Granulocytes 0.1 10^3/uL (0-0.05); Absolute Lymphocytes 0.5 10^3/uL (1.2-3.4); Absolute Monocytes 0.9 10^3/uL (0.1-0.6); Hematocrit 39.3 % (37.0-47.0); Hemoglobin 13.3 g/dL (12.0-16.0); Mean Corp Hgb Conc. 33.8 g/dL (33.0-37.0); Mean Corpuscular Hgb 32.1 pg (27.0-31.0); Mean Corpuscular Volume 94.9 fL (81.0-99.0); Mean Platelet Volume 8.6 fL (7.4-10.4); Nucleated Red Blood Cells % 0 %; Platelet Count 233 10^3/uL (130-400); Red Blood Cell Count 4.14 10^6/uL (4.20-5.40); Red Cell Dist. Width 14.1 % (11.5-14.5); White Blood Cell Count 7.8 10^3/uL (4.8-10.8)
[2024-11-21 08:54] LABS: Urine Albumin Negative (Neg - Trace); Urine Bilirubin Negative (Negative); Urine Character Clear (Clear); Urine Color Yellow; Urine Glucose Negative (Negative); Urine Ketone Negative (Negative); Urine Leukocyte Negative (Negative); Urine Nitrite Negative (Negative); Urine Occult Blood 1+ (Negative); Urine Urobilinogen Negative (Neg - 1+)
[2024-11-21 08:54] LABS: ALT (SGPT) 26 U/L (0-35); AST (SGOT) 29 U/L (14-36); Albumin 4.8 g/dl (3.5-5.0); Alkaline Phosphatase 94 U/L (38-126); Blood Urea Nitrogen 10 mg/dl (7-17); Calcium 9.2 mg/dl (8.4-10.2); Carbon Dioxide 26 mmol/L (22-30); Chloride 99 mmol/L (98-107); Estimated Creatinine Clearance 117 ml/min; Glucose 112 mg/dl (70-99); Potassium 4.5 mmol/L (3.5-5.1); Sodium 134 mmol/L (135-145); Total Bilirubin 0.7 mg/dl (0.2-1.3); Total Protein 7.3 g/dl (6.3-8.2); eGFR > 60.00
[2024-11-21 08:55] LABS: COVID-19 Antigen Positive (Negative)
[2024-11-21 09:00] VITALS: BP 175/101
[2024-11-21 09:06] LABS: Troponin I < 0.012 ng/ml
[2024-11-21] MEDS: TYLENOL 1000 MG PO (09:09)
[2024-11-21 10:00] VITALS: BP 147/78
[2024-11-21 10:16] LABS: Urine Amorphous Seen; Urine Red Blood Cell 0-2 /HPF (0-2); Urine Squamous Cell 0-2 /LPF (Few); Urine White Cell 0-2 /HPF (0-5)
[2024-11-21] MEDS: NSS 1000 IV (10:21)
[2024-11-21 11:00] VITALS: BP 153/74
[2024-11-21] MEDS: VENTOLIN NEBULES 2.5 MG INH (11:25)
[2024-11-21 12:00] VITALS: BP 154/78
== END 2024-11-21 12:40 | disposition home or self-care (01) ==
LOC: EMR 07:53
PROVIDERS: Nurse Practitioner; EMERGENCY PHYSICIAN Emergency Medicine; FAMILY PHYSICIAN Internal Medicine Critical Care Medicine
DX: U07.1 COVID-19 (principal); R50.9 Fever, unspecified; J45.909 Unspecified asthma, uncomplicated; M79.7 Fibromyalgia; M06.9 Rheumatoid arthritis, unspecified; E78.00 Pure hypercholesterolemia, unspecified; E03.9 Hypothyroidism, unspecified; K76.0 Fatty (change of) liver, not elsewhere classified; Z82.49 Family history of ischemic heart disease and other diseases of the circulatory system; Z90.49 Acquired absence of other specified parts of digestive tract; Z90.710 Acquired absence of both cervix and uterus
CPT/HCPCS: 99284; 94640; 96374; 96361; 71045; 80053; 81003; 81015; 84484; 85025; 87502; 87811; 93005

== ENCOUNTER → 2024-12-04 09:04 | Outpatient (REF) | payer OTHER, SELFPAY | LOC: RAD 09:04 | PROVIDERS: ATTENDING PHYSICIAN Internal Medicine Critical Care Medicine | DX: J84.89 Other specified interstitial pulmonary diseases (principal) | CPT/HCPCS: 71046 ==

== ENCOUNTER → 2025-02-21 07:35 | Outpatient (REF) | payer OTHER, SELFPAY | LOC: RAD 07:35 | PROVIDERS: ATTENDING PHYSICIAN Nurse Practitioner Adult Health; FAMILY PHYSICIAN Internal Medicine Critical Care Medicine | DX: J45.909 Unspecified asthma, uncomplicated (principal) | CPT/HCPCS: 71046 ==

== ENCOUNTER → 2025-03-21 11:19 | Outpatient (REF) | payer OTHER, SELFPAY | LOC: RAD 11:19 | PROVIDERS: ATTENDING PHYSICIAN Specialist; FAMILY PHYSICIAN Internal Medicine Critical Care Medicine | DX: N20.0 Calculus of kidney (principal) | CPT/HCPCS: 74176 ==

== ENCOUNTER → 2025-05-15 15:41 | Outpatient (REF) | payer OTHER, SELFPAY | LOC: RCS 15:41 | PROVIDERS: ATTENDING PHYSICIAN Internal Medicine Critical Care Medicine | DX: J45.909 Unspecified asthma, uncomplicated (principal); I28.8 Other diseases of pulmonary vessels | CPT/HCPCS: 93306 ==

== ENCOUNTER → 2025-07-02 07:57 | Outpatient (REF) | payer OTHER, SELFPAY | LOC: WDC 07:57 | PROVIDERS: ATTENDING PHYSICIAN Obstetrics & Gynecology | DX: Z12.31 Encounter for screening mammogram for malignant neoplasm of breast (principal) | CPT/HCPCS: 77063; 77067 ==